=== PATIENT | female | born 1995 | race Caucasian/White ===

== ENCOUNTER 2016-08-05 21:09 | Inpatient (IN) | payer BC ==
--- NOTE | ~2016-08-05 | PN ---
Unit #: [id number] #: [id number] Patient: ABDIAS PICKARD [id number] [facility] [address] [place] [address] [id number] I MR#: [id number] NAME: ABDIAS PICKARD ROOM: [facility]6 Age: 21 Sex: F Admission Date: 08/05/2016 : 1995 Attending Physician: Nash Collado M.D. Admitting Physician: Nash Collado M.D. Primary Care Physician: Primary Care Physician Ann CAMPOS PROGRESS NOTES DATE OF SERVICE 08/09/2016 DISCUSSION Ms. Pickard is a 21-year-old transgender male who was seen today. Chart was reviewed and case was discussed with the staff. He has been doing fairly well and appears to be coming out of his depression as she was able to come out of his room and was sitting in the day room though still has not been socializing (1) __. Meanwhile, he has been taking the medications and tolerating them fairly well. MENTAL STATUS EXAMINATION Young white male who is casually dressed with fair personal hygiene, appears to be in no acute distress or discomfort. The patient was awake and alert with intact orientation. His mood is anxious with congruent affect. He denies any suicidal or homicidal ideations. His insight and judgment remain slightly impaired. TREATMENT PLAN 1. We will continue him on his current treatment protocol, and we will monitor his response to the medications and make further adjustments as needed. 2. We will continue to follow up. Dictated by... Coleen Mehta/mani TD: 08/09/2016 13:46 JOB #: [id number] Unit #: [id number] #: [id number] Patient: ABDIAS PICKARD PROGRESS NOTES Page 1 of 1 X Nash Collado MD PROGRESS NOTE
--- NOTE | ~2016-08-05 | PN ---
Unit #: [id number] #: [id number] Patient: ABDIAS PICKARD [id number] [facility] [address] [place] [address] [id number] I MR#: [id number] NAME: ABDIAS PICKARD ROOM: [facility]6 Age: 21 Sex: F Admission Date: 08/05/2016 : 1995 Attending Physician: Nash Collado M.D. Admitting Physician: Nash Collado M.D. Primary Care Physician: Primary Care Physician Ann CAMPOS PROGRESS NOTES DATE OF SERVICE: 08/10/2016 SUBJECTIVE Mr. Pickard is a 21-year-old transgender, female to male, who was seen today and chart was reviewed and case was discussed with the staff. He has been doing fairly well and appears to be showing improvement in his mood and function and has been coming out, participating, socializing, and interacting, and has been taking the medications and tolerating them fairly well. MENTAL STATUS EXAMINATION Young white male who was casually dressed with fair personal hygiene, appears to be in no acute distress or discomfort. He was awake and alert with intact orientation. His mood was anxious with a congruent affect. He denies any suicidal or homicidal ideations. His insight and judgment remain slightly impaired. TREATMENT PLAN 1. We will continue him on his current treatment protocol. We will monitor his response to the medications and make further adjustments as needed. 2. We will continue to follow up. Dictated by... Coleen Mehta/connie TD: 08/11/2016 23:40 JOB #: [id number] [facility] PROGRESS NOTES Page 1 of 1 X Nash Collado MD PROGRESS NOTE
--- NOTE | ~2016-08-05 | HP ---
Unit #: [id number] #: [id number] Patient: DELFINO JENKINS [id number] [place] [address] [id number] I MR#: [id number] NAME: DELFINO JENKINS ROOM: P106 Age: 21 Sex: F Admission Date: 08/05/2016 : 1995 Attending Physician: Nash Collado M.D. Admitting Physician: Nash Collado M.D. Primary Care Physician: Primary Care Physician No HISTORY AND PHYSICAL HISTORY OF PRESENT ILLNESS Delfino is a 21-year-old female (she has had her name legally changed) admitted to [address] [place] [address] with depression and verbalizing wanting to hurt herself. PAST MEDICAL HISTORY History of migraines. PAST SURGICAL HISTORY T and A. ALLERGIES No known drug allergies. SOCIAL HISTORY She does not smoke. Drinks alcohol on occasion. Denies illicit drug use. FAMILY HISTORY Medically noncontributory. REVIEW OF SYSTEMS CONSTITUTIONAL: No fever or chills. HEENT: Denies any sore throat, ear pain or runny nose. CARDIOVASCULAR: Denies chest pain, irregular heart rhythm or palpitations. CHEST: Denies shortness of breath or cough. No hemoptysis. GASTROINTESTINAL: Denies nausea, vomiting, diarrhea or chronic constipation. ENDOCRINE: Denies history of increased thirst or urination. No recent significant weight loss or gain. GENITOURINARY: Denies dysuria, frequency, or hematuria. SKIN: Denies any rashes. HEMATOLOGIC: Denies history of increased bleeding or bruising. MUSCULOSKELETAL: Denies any hot, swollen joints. No generalized muscle pain. NEUROLOGIC: Denies problems with vision or speech. No frequent, severe headaches. No numbness, tingling or weakness in any extremities. Denies loss of bladder or bowel control. She has been on male hormones for 5 months. CURRENT MEDICATIONS 1. Wellbutrin 300 mg q.a.m. 2. Depo-Testosterone 100 mg IM q. 14 days. Unit #: [id number] #: [id number] Patient: DELFINO JENKINS 3. Depakote ER 750 mg daily. 4. Prozac 40 mg daily. 5. Topamax 50 mg daily. 6. Milk of Magnesia p.r.n. 7. Maalox p.r.n. 8. Tylenol p.r.n. PHYSICAL EXAMINATION GENERAL: Alert, petite young woman in no apparent distress. VITAL SIGNS: Blood pressure 104/62, heart rate 62, respirations 16, temperature 98.6. WEIGHT: 108. HEIGHT: 5 feet 6 inches. SKIN: Warm and dry without rash or lesion. HEENT: Normocephalic. TMs not viewed. Oral and nasal passages clear. Conjunctivae clear. PERRLA. EOMs intact. NECK: Supple without lymphadenopathy or thyromegaly. HEART: Regular rate and rhythm without murmur. LUNGS: Clear. ABDOMEN: Soft, nontender. : Not done. EXTREMITIES: No evidence of cyanosis, clubbing or edema. Moves all without focal deficit. NEUROLOGICAL: Grossly within normal limits. Cranial Nerves: II: Visual carroll are intact. III, IV AND : Extraocular movements are intact. Pupils are equal, round and reactive to light. V: Facial sensation is grossly normal. VII: Facial movements and expression are normal. VIII: Auditory acuity grossly intact. IX, X: Uvula is midline. Phonation is normal. XI: Patient shrugs shoulders and turns head normally. XII: Tongue protrudes in the midline. Sensory and Motor Function: Sensory and motor sensation is grossly normal. Motor: moves all extremities well. Coordination: Gait is normal. Deep Tendon Reflexes: Intact. IMPRESSION Psychiatric admission. RECOMMENDATIONS PSYCHIATRIC: Per psychiatrist. MEDICAL: See no contraindications to participate in facility's activities. MEDICAL PROGNOSIS Good. MEDICAL CONDITION Stable. Dictated by... Randy CastrejonAKan-Bladimir. for Coleen Ireland/kristine TD: 08/06/2016 21:56 Unit #: [id number] #: [id number] Patient: DELFINO JENKINS JOB #: [id number] HISTORY AND PHYSICAL Page 1 of 1 X Kelsey Grider HISTORY AND PHYSICAL
--- NOTE | ~2016-08-05 | PN ---
Unit #: [id number] #: [id number] Patient: ABDIAS PICKARD [id number] [facility] [address] [place] [address] [id number] I MR#: [id number] NAME: ABDIAS PICKARD ROOM: [facility]6 Age: 21 Sex: F Admission Date: 08/05/2016 : 1995 Attending Physician: Nash Collado M.D. Admitting Physician: Nash Collado M.D. Primary Care Physician: Primary Care Physician Ann CAMPOS PROGRESS NOTES DATE 08/12/2016 DISCUSSION Ms. Pickard is a 21-year-old transgender male who was seen today and chart was reviewed and case was discussed with the staff. He has been doing fairly well and has been rather seclusive to himself though reports improvement in his depressive symptoms. He has been compliant with his treatment recommendations as he has been taking the medications and tolerating them fairly well with no reported side effects. MENTAL STATUS EXAMINATION Young white male who was casually dressed with fair personal hygiene, appears to be in no acute distress or discomfort. He was awake and alert on interaction with intact orientation. His mood was anxious with congruent affect. He denies any suicidal or homicidal ideations. Also, denies any auditory or visual hallucinations. His insight and judgement remains slightly impaired. TREATMENT PLAN 1. We will continue her on his current medications and treatment protocol. We will monitor his response and make further adjustments as needed. 2. We will continue to follow up. Dictated by... Coleen Mehta/cristin TD: 08/13/2016 02:44 JOB #: [id number] Unit #: [id number] #: [id number] Patient: ABDIAS PICKARD PROGRESS NOTES Page 1 of 1 X Nash Collado MD PROGRESS NOTE
--- NOTE | ~2016-08-05 | A ---
[facility] Nutrition Therapy DATE: 08/06/16 Patient: ABDIAS CEBALLOS Physician: AFAIRF Address: [address] [place] [address] Room/Bed: [address], Zip: [place] [address] Admit Date: 08/05/16 Date of : [birth year] Height: 5 6 Weight: [phone] NUTRITIONAL ASSESSMENT: REASON: LOW BMI (17.4) PATIENT ADMITTED FOR SI AND DEPRESSION PMH: SCOLIOSIS, TBI, APHASIA Anthropometrics: HT: 5'6", WT: 108#, BMI: 17.4, %IBW: 83 Labs: 08/06/16- ALL LABS WNL Meds: WELLBUTRIN XL, PROZAC, TOPAMAX Assessment: PATIENT IS A 21 Y/O TRANSGENDER MALE ADMITTED FOR DEPRESSION AND SI. PATIENT IS BIOLOGICALLY FEMALE AND IDENTIFIES MALE. HE IS CURRENTLY EMPLOYED, IS A FRESHMAN AT [employer], LIVES WITH HIS PARENTS, AND DENIES ANY HX OF SUBSTANCE ABUSE. PATIENT STATED A POOR APPETITE WITH NO RECENT WEIGHT LOSS. PATIENT REPORTED TO NURSING THAT HE IS FORGETFUL D/T A TBI AND HE IS BAD ABOUT EATING. THERE ARE NO CURRENT PO INTAKES AVAILABLE. PATIENT'S NUTRITIONAL LABS WERE ALL WNL. CURRENT PSYCH MEDS MAY CAUSE WEIGHT AND APPETITE FLUCTUATIONS. THERE ARE NO SKIN OR GI ISSUES NOTED ATT. PATIENT IS ON A REGULAR DIET. Dx: INADEQUATE NUTRIENT INTAKE R/T CURRENT CONDITION, DEPRESSION AEB LOW BMI, <90% IBW Intervention: REGULAR DIET, SUPPLEMENTS, MEDS PER MD, PSYCH Monitoring, Evaluation and Goals: 1. ADEQUATE PO INTAKES >50% OF MEALS 2. PREVENT, CORRECT MICRO/MACRO NUTRIENT DEFICIENCIES 3. PROMOTE A STEADY WEIGHT GAIN TOWARDS A HEALTHY BMI OF 19-25 MONITOR: WEIGHTS, LABS, PO/FLUID INTAKES Recommendations: 1. CONTINUE REGULAR DIET. IF PATIENT HAS GOOD PO INTAKES INCREASE ENTREES TO LARGE PORTIONS. OFFER SNACKS BETWEEN MEALS 2. ENCOURAGE ADEQUATE PO AND FLUID INTAKES 3. OBTAIN WEIGHTS ROUTINELY (EVERY 3-4 DAYS) 4. SEND ENSURE BID TO PROMOTE ADEQUATE KCAL AND PROTEIN INTAKES AND A STEADY WEIGHT GAIN TOWARDS A HEALTHY BMI [facility] Nutrition Therapy DATE: 08/06/16 Patient: ABDIAS CEBALLOS Physician: AFAIRF Address: [address] [place] [address] Room/Bed: [facility], Zip: [place] [address] Admit Date: 08/05/16 Date of : 95 Height: 5 6 Weight: [phone] TO F/U PER PROTOCOL AND PRN R/T PATIENT MILDLY COMPROMISED Respectfully, TATI PRUITT RD, LD [facility] cc: client file
--- NOTE | ~2016-08-05 | DS ---
Unit #: [id number] #: [id number] Patient: ABDIAS JENKINS [id number] [facility] [address] [place] [address] [id number] I MR#: [id number] NAME: ABDIAS JENKINS ROOM: [facility]6 Age: 21 Sex: F Admission Date: 08/05/2016 : 1995 Discharge Date: Attending Physician: Nash Collado M.D. Primary Care Physician: Primary Care Physician No DISCHARGE SUMMARY IDENTIFYING DATA Mr. Jenkins is a 21-year-old transgender female to male who is a resident of [place] and was self-referred to the hospital on a voluntary basis. DISCHARGE DIAGNOSES Psychiatric: Major depressive disorder, recurrent, moderate, without psychotic features; history of traumatic brain injury. Medical: None. Stressors: Mild psychosocial stressors. HISTORY OF PRESENT ILLNESS Please see initial psychiatric evaluation for details. PAST PSYCHIATRIC HISTORY Please see initial psychiatric evaluation for details. PAST MEDICAL HISTORY Please see initial psychiatric evaluation for details. HOSPITAL COURSE The [facility] and was oriented to the hospital environment. Routine p.r.n. medications were initiated, and he was started back on his home medications and Depakote was maintained and Wellbutrin was increased to 300 mg in the morning along with Depakote and was closely monitored. He was initially seen to be very depressed, anxious, withdrawn, seclusive to himself, guarded, and unable to cut come out and socialize or interact; however, he was compliant with treatment recommendations and was able to show a fairly decent therapeutic response, and as such, it was decided that he will be discharged home and will continue treatment on an outpatient basis. DISCHARGE MEDICATIONS Depakote 750 mg in the morning for mood disorder, Wellbutrin XL 300 mg in the morning for depression, and Prozac 40 mg a day for depression. DISCHARGE CONDITION Stable. PROGNOSIS [place]. Unit #: [id number] #: [id number] Patient: ABDIAS JENKINS Dictated by... Coleen Mehta/connie TD: 08/13/2016 07:10 JOB #: [id number] DISCHARGE SUMMARY Page 1 of 1 X Nash Collado MD DISCHARGE SUMMARY
--- NOTE | ~2016-08-05 | PN ---
Unit #: [id number] #: [id number] Patient: ABDIAS PICKARD [id number] [facility] [address] [place] [address] [id number] I MR#: [id number] NAME: ABDIAS PICKARD ROOM: [facility]6 Age: 21 Sex: F Admission Date: 08/05/2016 : 1995 Attending Physician: Nash Collado M.D. Admitting Physician: Nash Collado M.D. Primary Care Physician: Primary Care Physician Ann CAMPOS PROGRESS NOTES DATE 08/08/2016 DISCUSSION Mr. Pickard is a 21-year-old transgender male who was seen today and chart was reviewed and case was discussed with the staff. He has been anxious, withdrawn, seclusive to himself and reports not feeling much better and staff reports he has been seclusive and isolative and patient reports having no energy and sleeping a lot. Meanwhile, Wellbutrin was just recently started and he has been taking without any tolerability issues. MENTAL STATUS EXAMINATION Young white male who was casually dressed with fair personal hygiene and appears to be in no acute distress or discomfort. He was awake and alert on interaction with intact orientation. His mood was anxious with congruent affect. He reports having suicidal ideation but denies any homicidal ideation. His insight and judgement remains slightly impaired. TREATMENT PLAN 1. Will continue on his current medications and treatment protocol. Will monitor his response to the medications and make further adjustments as needed. 2. Will continue to follow up. Dictated by... Coleen Mehta/kristine TD: 08/08/2016 15:51 JOB #: [id number] Unit #: [id number] #: [id number] Patient: ABDIAS PICKARD [facility] PROGRESS NOTES Page 1 of 1 X Nash Collado MD PROGRESS NOTE
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
--- NOTE | ~2016-08-05 | PN ---
Unit #: [id number] #: [id number] Patient: ABDIAS PICKARD [id number] [facility] [address] [place] [address] [id number] MR#: [id number] NAME: ABDIAS PICKARD ROOM: [facility]6 Age: 21 Sex: F Admission Date: 08/05/2016 : 1995 Attending Physician: Nash Collado M.D. Admitting Physician: Nsah Collado M.D. Primary Care Physician: Primary Care Physician Ann MAY NOTES DATE August 07, 2016 DISCUSSION Mr. Pickard is a 21-year-old transgender male, who was seen today and chart was reviewed and the case was discussed with the staff. He has been anxious, withdrawn, and rather seclusive to himself, and has been reporting persistent depressive symptoms and the Wellbutrin was just increased to 200 mg in the morning yesterday. He has been taking the medications and tolerating them fairly well with no reported side effects. MENTAL STATUS EXAMINATION Young white male, who was casually dressed with fair personal hygiene and appears to be in no acute distress or discomfort. He was awake and alert on interaction with intact orientation. His mood is anxious with a congruent affect. His speech is slow and goal-directed. He denies any suicidal or homicidal ideations, and also denies any auditory or visual hallucinations. His insight and judgment remain slightly impaired. TREATMENT PLAN 1. We will continue him on his current medications and treatment protocol, and will monitor his response to the medications, and make further adjustments as needed. 2. We will continue to followup. Dictated by... Coleen Mehta/ezio TD: 08/07/2016 11:49 JOB #: [id number] Unit #: [id number] #: [id number] Patient: ABDIAS PICKARD [facility] PROGRESS NOTES Page 1 of 1 X Nash Collado MD PROGRESS NOTE
--- NOTE | ~2016-08-05 | PN ---
Unit #: [id number] #: [id number] Patient: ABDIAS PICKARD [id number] [facility] [address] [place] [address] [id number] I MR#: [id number] NAME: ABDIAS PICKARD ROOM: [facility]6 Age: 21 Sex: F Admission Date: 08/05/2016 : 1995 Attending Physician: Nash Collado M.D. Admitting Physician: Nash Collado M.D. Primary Care Physician: Primary Care Physician Ann CAMPOS PROGRESS NOTES DATE OF SERVICE: 08/11/2016 SUBJECTIVE Mr. Pickard is a 21-year-old transgender male who was seen today and chart was reviewed and case was discussed with the staff. He has been anxious, withdrawn, and rather seclusive to himself. Meanwhile, he has been cooperative with treatment recommendations and has been taking the medications and tolerating them fairly well with no reported side effects. MENTAL STATUS EXAMINATION Young white male who was casually dressed with fair personal hygiene, appears to be in no acute distress or discomfort. He was awake and alert on interaction with intact orientation. His mood was anxious with a congruent affect. He denies any suicidal or homicidal ideations. His insight and judgment remain slightly impaired. TREATMENT PLAN 1. We will continue him on his current medications and treatment protocol. We will monitor his response to the medications and make further adjustments as needed. 2. We will continue to follow up. Dictated by... Coleen Mehta/connie TD: 08/12/2016 07:51 JOB #: [id number] [facility] PROGRESS NOTES Page 1 of 1 X Nash Colaldo MD X PROGRESS NOTE
[2016-08-06 09:37] LABS: BASOPHIL% 0.6 % (0-2.5); EOSINOPHIL# 0.3 X10e3 (0-0.7); EOSINOPHIL% 4.7 % (0.0-7.0); HEMATOCRIT 43.5 % (35.0-45.0); HEMOGLOBIN 14.3 gm/dL (12.0-16.0); LYMPHOCYTE# 2.4 X10e3 (1.0-3.5); LYMPHOCYTE% 39.7 % (17.0-45.0); MEAN CELL VOLUME 95.1 FL (83-96); MEAN CORPUSCULAR HEMOGLOBIN 31.2 PG (28-34); MEAN CORPUSCULAR HGB CONC 32.9 g/dL (30-36); MEAN PLATELET VOLUME 8.4 FL (6.5-11.5); MONOCYTE# 0.6 X10e3 (0-1.0); MONOCYTE% 9.8 % (3.0-12.0); NEUTROPHIL# 2.8 X10e3 (1.5-7.1); NEUTROPHIL% 45.2 % (40-75); PLATELET COUNT 176 X10e3 (140-420); RED BLOOD COUNT 4.57 X10e (3.90-5.30); RED CELL DISTRIBUTION WIDTH 12.1 % (11.0-15.5); WHITE BLOOD COUNT 6.1 X10e3 (4.0-10.5)
[2016-08-06 09:45] LABS: DIFF IND NO
[2016-08-06 09:55] LABS: ALBUMIN SERUM 4.1 g/dL (3.5-5.0); BILIRUBIN,TOTAL 0.4 mg/dL (0.2-2.0); BUN/CREATININE RATIO 13.75; CALCIUM SERUM 9.3 mg/dL (8.4-10.2); CREATININE SERUM 0.8 mg/dL (0.6-1.4); GLOM FILT RATE Estimated 105.5 mL/min (>60); POTASSIUM 4.3 mmol/L (3.5-5.1); PROTEIN TOTAL SERUM 6.4 g/dL (6.0-8.3)
== END 2016-08-13 11:30 | disposition home or self-care (01) | DRG 885 ==
LOC: P1S 23:14
PROVIDERS: Psychiatry & Neurology Psychiatry
DX: F33.1 Major depressive disorder, recurrent, moderate (principal); Z87.820 Personal history of traumatic brain injury
CPT/HCPCS: 80053; 85025